=== PATIENT | male | born 1965 | race Caucasian/White ===

== ENCOUNTER → 2017-12-11 | Outpatient (CLI) | payer OTHER ==
[~2017-12-11] MED LIST: ACYC200O PO; BUPR-472 PO; LEVO40CA PO; LOSA100T67 PO; LOSA25TA50 PO; PER PO; SULF-198 PO; TAMS0.4C70 PO; VALA500T63 PO
== END ==
LOC: RESP 06:39
PROVIDERS: ATTEND Family Medicine
DX: G47.30 Sleep apnea, unspecified (principal); G47.36 Sleep related hypoventilation in conditions classified elsewhere